=== PATIENT | male | born 1930 | race Native Hawaiian/Other Pacific Islander ===

== ENCOUNTER 2017-05-04 12:32 | Outpatient (CLI) | payer OTHER, MEDICARE ==
[~2017-05-04 12:32] MED LIST: AMLO5TAB PO; ASPIR-8181 MG PO; BENA20TA2 PO; METF500T PO; METOPROLOL25 M1 PO; TAMS0.4C PO; TRAZ50TA36 PO; VITAMIN D1000 UNIT PO
== END 2017-05-04 19:22 | disposition home or self-care (01) ==
LOC: LABW 12:32
DX: I48.91 Unspecified atrial fibrillation (principal)
CPT/HCPCS: 36415; 85610

== ENCOUNTER 2017-06-13 09:54 | Outpatient (CLI) | payer OTHER, MEDICARE | END 2017-06-13 21:10 | disposition home or self-care (01) | LOC: LABW 09:54 | DX: I48.91 Unspecified atrial fibrillation (principal) | CPT/HCPCS: 36415; 85610 ==

== ENCOUNTER 2017-07-11 09:44 | Outpatient (CLI) | payer OTHER, MEDICARE | END 2017-07-11 20:06 | disposition home or self-care (01) | LOC: RAD 09:44 → LABW 09:44 | DX: I48.91 Unspecified atrial fibrillation (principal); M43.16 Spondylolisthesis, lumbar region; M48.061 Spinal stenosis, lumbar region without neurogenic claudication; M54.5 Low back pain | CPT/HCPCS: 36415; 85610 ==

== ENCOUNTER 2017-07-20 13:22 | Outpatient (CLI) | payer OTHER, MEDICARE | END 2017-07-20 21:48 | disposition home or self-care (01) | LOC: MRI 13:22 | DX: M54.5 Low back pain (principal) | CPT/HCPCS: 36415; 82565; 84520; A9576 ==

== ENCOUNTER 2017-08-10 08:36 | Outpatient (CLI) | payer OTHER, MEDICARE | END 2017-08-10 18:03 | disposition home or self-care (01) | LOC: LABW 08:36 | DX: I48.91 Unspecified atrial fibrillation (principal) | CPT/HCPCS: 36415; 85610 ==

== ENCOUNTER 2017-09-14 14:29 | Outpatient (CLI) | payer OTHER, MEDICARE | END 2017-09-14 21:43 | disposition home or self-care (01) | LOC: LABW 14:29 | DX: I48.91 Unspecified atrial fibrillation (principal) | CPT/HCPCS: 36415; 85610 ==

== ENCOUNTER 2017-11-11 11:29 | Outpatient (CLI) | payer OTHER, MEDICARE | END 2017-11-11 19:11 | disposition home or self-care (01) | LOC: LABW 11:29 | DX: I48.91 Unspecified atrial fibrillation (principal) | CPT/HCPCS: 36415; 85610 ==

== ENCOUNTER 2017-12-12 08:52 | Outpatient (CLI) | payer OTHER, MEDICARE | END 2017-12-12 21:59 | disposition home or self-care (01) | LOC: LABW 08:52 | DX: I48.91 Unspecified atrial fibrillation (principal) | CPT/HCPCS: 36415; 85610 ==

== ENCOUNTER 2019-03-23 13:02 | Inpatient (IN) | payer OTHER, MEDICARE ==
[~2019-03-23] VITALS: Ht 188 cm; Wt 83.7 kg
[2019-03-23 14:02] LABS: PLATELET COUNT 316 K/uL (142-355)
[2019-03-23 14:11] VITALS: BP 110/60; TEMP 97.7; Ht 188 cm; Wt 83.7 kg
[2019-03-23 14:15] LABS: POTASSIUM 4.1 mmol/L (3.6-5.2)
[2019-03-23 20:00] VITALS: BP 110/56; TEMP 99.5
[2019-03-23 23:53] VITALS: BP 90/62; TEMP 98.4
[2019-03-24 20:00] VITALS: BP 140/66; TEMP 98.2
[2019-03-25 08:00] VITALS: BP 110/57; TEMP 98.7
[2019-03-25 20:25] VITALS: BP 103/48; TEMP 98.8
[2019-03-26 08:00] VITALS: BP 133/65; TEMP 98.6
[2019-03-26 20:00] VITALS: BP 121/55; TEMP 98.7
[2019-03-27 08:00] VITALS: BP 140/71; TEMP 98.6
[2019-03-27 20:00] VITALS: BP 108/56; TEMP 98.2
[2019-03-28 06:51] LABS: PARTIAL THROMBOPLASTIN TIME 42.6 SECONDS (24.5-33.6)
[2019-03-28 08:00] VITALS: BP 119/62; TEMP 98.3
[2019-03-28 20:00] VITALS: BP 116/59; TEMP 98.7
[2019-03-29 08:00] VITALS: BP 147/61; TEMP 97.9
[2019-03-29 19:39] VITALS: BP 101/53; TEMP 99.1
[2019-03-30 08:00] VITALS: BP 132/52; TEMP 99
[2019-03-30 20:00] VITALS: BP 116/58; TEMP 99.2
[2019-03-31 08:00] VITALS: BP 122/60; TEMP 98.2
[2019-03-31 20:00] VITALS: BP 114/59; TEMP 98.1
[2019-04-01 08:00] VITALS: BP 156/68; TEMP 98.6
[2019-04-01 20:00] VITALS: BP 107/57; TEMP 97.8
[2019-04-02 08:00] VITALS: BP 133/73; TEMP 99.2
[2019-04-02 20:00] VITALS: BP 120/57; TEMP 98.5
[2019-04-03 08:00] VITALS: BP 137/68; TEMP 98.5
[2019-04-03 20:00] VITALS: BP 126/58; TEMP 98.2
[2019-04-04 08:00] VITALS: BP 146/68; TEMP 97.6
[2019-04-04] MEDS ORDERED: BLOOMIS59 PO ×6 (11:39→11:51)
== END 2019-04-04 12:40 | disposition home or self-care (01) | DRG 948 ==
LOC: MED/SURG 13:02
PROVIDERS: ADMIT Family Medicine
DX: R53.1 Weakness (principal); R62.7 Adult failure to thrive; R26.89 Other abnormalities of gait and mobility; I48.91 Unspecified atrial fibrillation; I25.10 Atherosclerotic heart disease of native coronary artery without angina pectoris; I10 Essential (primary) hypertension; E11.9 Type 2 diabetes mellitus without complications; N40.0 Benign prostatic hyperplasia without lower urinary tract symptoms; F03.90 Unspecified dementia, unspecified severity, without behavioral disturbance, psychotic disturbance, mood disturbance, and anxiety; G47.09 Other insomnia; M10.9 Gout, unspecified; E55.9 Vitamin D deficiency, unspecified; F32.89 Other specified depressive episodes; S83.207A Unspecified tear of unspecified meniscus, current injury, left knee, initial encounter
CPT/HCPCS: 36415; 80053; 81000; 85027; 85610; 85730; 87081; G0283-GP